=== PATIENT | male | born 1955 | race Caucasian/White ===

== ENCOUNTER 2023-12-02 11:52 | Emergency (ER) | payer MEDICARE, SELFPAY ==
[2023-12-02 12:02] VITALS: BP 144/77
--- NOTE | 2023-12-02 12:37 | ED.GENMED ---
History of Present Illness
General
Chief Complaint: Heart Rate Problem
Source: patient
Exam Limitations: none
Time Seen by Provider: 12/02/23 12:11
Travel History
Have you had any contact with someone who has COVID-19?: No
Do you have any symptoms of coronavirus? Fever > 100 degrees, chills, cough, shortness of breath, sore throat, loss of taste or smell, muscle aches, or headache?: No
History of Present Illness
History of Present Illness:
68-year-old male with history of coronary artery disease, A-fib on Eliquis presents complaining of fatigue and palpitations worsening over the past week and a half. He has a history of three-vessel disease requiring stents in the past. He is
followed by cardiology. He denies current chest pain. He denies nausea or vomiting. No leg swelling or calf pain. He notes significant increase in frequency and persistence of palpitations. No shortness of breath or lightheadedness. No other
complaints at this time
Past History
Past History
ED Past Medical History: Arrthythmia (Atrial fib), CAD, GERD, HTN, Hypercholesterolemia, [place] and Other (Diverticulosis)
ED Past Surgical History: Cardiac (stent X 3, STEMI) and Urological (Vasectomy)
Social History
Tobacco: Former smoker
Alcohol: None
Drug: None
Personal:
Living: with family
Employment: Employed
Family History
Family History: CAD
Phy Exam
Physical Exam
Physical Exam:
General: Well-appearing male no acute respiratory distress
HEENT: Normocephalic atraumatic
Heart: Regular rate and rhythm no audible murmurs lungs: Clear no wheeze or rales
Abdomen soft nontender nondistended no guarding or rebound
Extremities: No cyanosis
Skin: Warm no rash
Course
Orders/Labs/Results
Orders:
Orders
12/02/23 11:53
ECG [Electrocardiogram (*1)] Urgent
Reason for Study: Palpitations
EKG- Treatment ONCE
12/02/23 13:29
Complete Blood Count/With Diff Urgent
Comprehensive Metabolic Panel Urgent
TSH Reflex To Free T4 Urgent
Troponin I Urgent
Abnormal Lab Results
12/02/23
13:29
RDW 14.8 H %
(11.5-14.5)
Lymphocytes % 18.6 L %
(20.5-51.1)
Chloride 108 H mmol/L
(98-107)
BUN 22 H mg/dl
(9-20)
Glucose 101 H mg/dl
(70-99)
12/02/23 13:29
12/02/23 13:29
Vital Signs
Initial and Last Documented VS:
Initial Vital Signs
Temp Pulse Resp BP Pulse Ox
98.4 F 57 18 144/77 98
12/02/23 12:02 12/02/23 12:02 12/02/23 12:02 12/02/23 12:02 12/02/23 12:02
Last Documented Vital Signs
Temp Pulse Resp BP Pulse Ox
98.4 F 57 21 104/72 95
12/02/23 12:02 12/02/23 15:04 12/02/23 15:04 12/02/23 15:04 12/02/23 15:20
MDM/Problems Addressed
Differential Diagnosis Includes:
Palpitations. Reviewed prior records. Patient has been on metoprolol 50 mg for quite some time however his blood pressure was dropping after he lost some weight. He cut his metoprolol in half about a month ago. He started with palpitations about
10 days ago. Since the palpitations increased to cut back on to his original metoprolol dose as of this morning. He took an additional 100 mg last evening secondary to the increased palpitations. Currently he is in sinus rhythm on EKG with PVCs.
Given the fatigue and history of coronary artery disease will do workup including TSH and troponin. Keep on monitor.
*Critical Care Note
Total Time (30-74mins, 75-104mins- exclusive of procedures): Not Applicable
Update Note
Update Note:
Patient remained stable here. PVCs noted on monitor. Troponin undetectable. TSH normal. Labs reviewed without other significant findings. Discussed findings with cardiology, Dr. Cordero. Patient will continue 50 mg of metoprolol in the
morning and follow-up with cardiology. They have an appointment for him next Tuesday at 8 AM.
ED Attending Note
-
Portions of this chart may have been created with voice recognition software.� Occasional wrong word or��sound alike� substitutions may have occurred due to the inherent limitations of voice recognition software.
Discharge Plan
Departure
Patient Disposition: Home (Routine Discharge)
Date of Disposition: 12/02/23
Time of Disposition: 15:34
Patient with high blood pressure during this ER visit?: No
Discharge Problem:
Palpitations
Instructions: Palpitations (DC)
Prescriptions:
No Action
tadalafil [Cialis] 5 MG tablet
5 mg PO HS
metoprolol succinate 50 MG tablet extended release 24 hr
50 mg PO DAILY
losartan 25 MG tablet
25 mg PO DAILY
rosuvastatin 10 MG tablet
10 mg PO HS
multivitamin with folic acid [Tab-A-Dee Dee] 1 TABLET tablet
1 tab PO BID
Eliquis 5 MG tablet
5 mg PO BID Qty: 60 0RF
icosapent ethyl [Vascepa] 1 gram Capsule
2 g PO BID
Referrals:
Steve Leonard MD [Family Provider] -
Activity Restrictions/Additional Instructions:
Please continue to take 50 mg of metoprolol daily. Please follow-up with the cardiology team Tuesday morning at 8 AM. Return if needed otherwise
Interventions
Interventions:
*Risk Screen - Suicide Last Done: 12/02/23 12:02
*General Assessment Last Done: 12/02/23 12:02
*Neglect/Abuse Screening Last Done: 12/02/23 12:02
*ED COVID-19 Vaccine History Last Done: 12/02/23 12:02
ED- Cardiac Assessment Last Done: 12/02/23 15:17
ED- Pulmonary Assessment Last Done: 12/02/23 15:20
Discharge Date and Time
Print Language: AMERICAN
[2023-12-02 13:30] VITALS: BMI 29.1
[2023-12-02 13:39] LABS: % Basophils 0.3 % (0-2); % Eosinophils 3.2 % (0-6); % Immature Granulocytes 0.3 % (0-0.5); % Lymphocytes 18.6 % (20.5-51.1); % Monocytes 6.6 % (1.7-9.3); Absolute Eosinophils 0.2 10^3/uL (0-0.7); Absolute Lymphocytes 1.3 10^3/uL (1.2-3.4); Absolute Monocytes 0.5 10^3/uL (0.1-0.6); Absolute Neutrophils 4.8 10^3/uL (1.4-6.5); Hematocrit 40.7 % (39.0-52.0); Mean Corp Hgb Conc. 34.4 g/dL (33.0-37.0); Mean Corpuscular Hgb 29.2 pg (27.0-31.0); Mean Corpuscular Volume 84.8 fL (80.0-94.0); Mean Platelet Volume 10.2 fL (7.4-10.4); Nucleated Red Blood Cells % 0 % (-); Platelet Count 265 10^3/uL (130-400); Red Cell Dist. Width 14.8 % (11.5-14.5); White Blood Cell Count 6.8 10^3/uL (4.8-10.8)
[2023-12-02 13:53] LABS: ALT (SGPT) 25 U/L (0-50); AST (SGOT) 24 U/L (17-59); Albumin 4.1 g/dl (3.5-5.0); Alkaline Phosphatase 93 U/L (38-126); Blood Urea Nitrogen 22 mg/dl (9-20); Calcium 9.4 mg/dl (8.4-10.2); Carbon Dioxide 22 mmol/L (22-30); Chloride 108 mmol/L (98-107); Estimated Creatinine Clearance 80 ml/min; Glucose 101 mg/dl (70-99); Potassium 4.3 mmol/L (3.5-5.1); Sodium 137 mmol/L (135-145); Total Bilirubin 0.6 mg/dl (0.2-1.3); Total Protein 6.6 g/dl (6.3-8.2); eGFR > 60.00
[2023-12-02 14:08] LABS: Troponin I < 0.012 ng/ml
[2023-12-02 14:23] LABS: TSH Reflex To Free T4 2.01 uIU/ml (0.47-4.68)
[2023-12-02 15:04] VITALS: BP 104/72
[2023-12-02 16:11] VITALS: BP 104/72
== END 2023-12-02 16:18 | disposition home or self-care (01) ==
LOC: EMR 11:52
PROVIDERS: Physician Assistant; EMERGENCY PHYSICIAN Emergency Medicine; FAMILY PHYSICIAN Family Medicine
DX: R00.2 Palpitations (principal); R53.83 Other fatigue; I25.10 Atherosclerotic heart disease of native coronary artery without angina pectoris; I48.91 Unspecified atrial fibrillation; I10 Essential (primary) hypertension; E78.00 Pure hypercholesterolemia, unspecified; K21.9 Gastro-esophageal reflux disease without esophagitis; K57.90 Diverticulosis of intestine, part unspecified, without perforation or abscess without bleeding; I25.2 Old myocardial infarction; Z95.5 Presence of coronary angioplasty implant and graft; Z87.891 Personal history of nicotine dependence; Z79.01 Long term (current) use of anticoagulants; Z79.899 Other long term (current) drug therapy
CPT/HCPCS: 99283; 80053; 84443; 84484; 85025; 93005

== ENCOUNTER → 2024-01-05 14:14 | Outpatient (REF) | payer MEDICARE, SELFPAY | LOC: RCS 14:14 | PROVIDERS: ATTENDING PHYSICIAN Internal Medicine Cardiovascular Disease; FAMILY PHYSICIAN Family Medicine | DX: I25.10 Atherosclerotic heart disease of native coronary artery without angina pectoris (principal); I25.5 Ischemic cardiomyopathy; I25.2 Old myocardial infarction; Z98.890 Other specified postprocedural states | CPT/HCPCS: 93017; 93350 ==

== ENCOUNTER → 2024-02-10 18:17 | Outpatient (REF) | payer MEDICARE, SELFPAY | LOC: MRI 3T 18:17 | PROVIDERS: ATTENDING PHYSICIAN Otolaryngology; FAMILY PHYSICIAN Family Medicine | DX: H90.42 Sensorineural hearing loss, unilateral, left ear, with unrestricted hearing on the contralateral side (principal); H93.12 Tinnitus, left ear | CPT/HCPCS: 70553; A9575 ==

== ENCOUNTER → 2024-02-23 08:01 | Outpatient (REF) | payer MEDICARE, SELFPAY | LOC: RAD 08:01 | PROVIDERS: ATTENDING PHYSICIAN Specialist; FAMILY PHYSICIAN Family Medicine | DX: R31.0 Gross hematuria (principal) | CPT/HCPCS: 74178; Q9967 ==

== ENCOUNTER 2024-03-14 00:31 | Emergency (ER) | payer MEDICARE, SELFPAY ==
[2024-03-14 00:33] VITALS: BP 146/86
--- NOTE | 2024-03-14 00:40 | ED.GENMED ---
History of Present Illness
General
Chief Complaint: Cardiac Symptoms
Source: patient
Exam Limitations: none
Time Seen by Provider: 03/14/24 00:39
Nursing documentation reviewed up to this point in time: agreed with
History of Present Illness
History of Present Illness:
Pleasant 68-year-old male who presents with chest pain upon exertion. He was in [facility] with his grandkids and carrying firewood up a hill. He states that he had twinges of chest pain in his chest at that time. He reports that it has
been intermittent since. Patient states that he had an MD in 2012. He states that that pain was sudden and persistent. This pain was much different and much less intense. Patient has followed with Dr. Emanuel Olson, cardiology. He had a stress
test which she states was normal about a month and a half ago. He has had a normal office visit about a week ago. He states that since his heart attack he has lost about 50 pounds and has been more active. Denies tobacco or drug use. Does not
drink alcohol in excess. Patient is currently chest pain-free.
Vital signs are stable. Patient not hypoxic
Nursing note reviewed. I agree with nursing documentation up to this point in time.
Home Meds and allergies reviewed.
NUMBER AND COMPLEXITY OF PROBLEMS ADDRESSED AT THE ENCOUNTER
� Chronic conditions affecting care: ACS
� Acute Exacerbation and/or Progression of Chronic Illness: Hypertension
� Differential Diagnosis includes: ACS, musculoskeletal injury, MD
AMOUNT AND/OR COMPLEXITY OF DATA TO BE REVIEWED AND ANALYZED
I performed an independent evaluation of the following and my interpretation is:
EKG: EKG shows sinus bradycardia rate of 59 with normal intervals, normal axis. Interventricular conduction delay noted no evidence of acute ischemia present. When compared with previous EKG dated December 02, 2023, similar
morphology noted. There are some T wave inversions noted on current EKG.
CT:
X-rays:
Ultrasound:
Laboratory Studies:
Other:
Review of other/old records: Normal stress echocardiogram on 01/05/2024 with normal hemodynamic response to exercise. Overall low risk stress test
Clinical information was obtained by an independent historian:
Prescriptions/Medications Considered but not given:
Further testing considered but not performed:
RISK OF COMPLICATIONS AND/OR MORBIDITY OR MORTALITY OF PATIENT MANAGEMENT
Social determinants of health affecting care: Good Social Support present at the bedside
Discussion with other providers:
Escalation of care including admission/observation vs risk of discharge considered:
CRITICAL CARE NOTE:
Total Time (exclusive of procedures):
Update:
Past History
Past History
ED Past Medical History: Arrthythmia (Atrial fib), CAD, GERD, HTN, Hypercholesterolemia, [place] and Other (Diverticulosis)
ED Past Surgical History: Cardiac (stent X 3, STEMI) and Urological (Vasectomy)
Social History
Tobacco: Former smoker
Alcohol: None
Drug: None
Personal:
Living: with family
Employment: Employed
Family History
Family History: CAD
Review of Systems
Review of Systems
Allergies reviewed?: Yes
Other source history: family
All Other Systems: ROS reviewed and negative except as documented in HPI and ROS
Constitutional: Reports no symptoms
EENT: Reports no symptoms
Respiratory: Reports no symptoms
Cardiac: Reports chest pain
ABD/GI: Reports no symptoms
: Reports no symptoms
Musculoskeletal: Reports no symptoms
Skin: Reports no symptoms
Neurological: Reports no symptoms
Endocrine: Reports no symptoms
Hematologic/Lymphatic: Reports no symptoms
Psychiatric: Reports no symptoms
Phy Exam
General Physical Exam
General Presentation: well appearing and no apparent distress
General Skin: warm and dry
General Habitus: normal
General Mental: alert
General Hydration: appears well hydrated
ENT Exam
ENT Exam: EOMI, pharynx normal, neck supple and normocephalic
Eye Exam
Eye Exam: PERRL, cornea clear and conjunctiva normal
Cardiovascular Exam
Cardiovascular Exam: regular rate/rhythm, no edema, no murmur and normal peripheral pulses
Pulmonary Exam
Pulmonary Exam: lungs clear, no respiratory distress, no rales, no crackles, no rhonchi, no stridor, no wheezing and no cough
Gastrointestinal Exam
Gastrointestinal Exam: normal bowel sounds, non tender, soft, no organomegaly, no pulsatile mass and non distended
Neurological Exam
Neurological Exam: alert, oriented x3, no motor deficits and speech normal
Musculoskeletal Exam
Musculoskeletal Exam: full ROM and no edema
Skin Exam
Skin Exam: normal color, warm/dry, no rash and no petechia
Psychiatric Exam
Psychiatric Exam: normal mood/affect
Course
Orders/Labs/Results
Orders:
Orders
03/14/24 00:36
Electrocardiogram (*1) Urgent
Reason for Study: Chest Pain
EKG- Treatment ONCE
03/14/24 00:44
CR Chest - 2 Views Urgent
Comment:
Reason For Exam: cp
03/14/24 00:50
Electrocardiogram (*1) Urgent
Reason for Study: Chest Pain
EKG- Treatment ONCE
EKG- Treatment ONCE
03/14/24 00:54
CMP [Comprehensive Metabolic Panel] Urgent
Complete Blood Count/With Diff Urgent
Prothrombin Time Urgent
Troponin I Urgent
03/14/24 04:00
Electrocardiogram (*1) Urgent
Reason for Study: Chest Pain
03/14/24 04:03
Troponin I Routine
Abnormal Lab Results
03/14/24
00:54
Absolute Neuts (auto) 7.3 H 10^3/uL
(1.4-6.5)
Absolute Monos (auto) 0.8 H 10^3/uL
(0.1-0.6)
Lymphocytes % 19.4 L %
(20.5-51.1)
PT 15.2 H Sec
(11.4-14.6)
BUN 27 H mg/dl
(9-20)
Glucose 102 H mg/dl
(70-99)
03/14/24 00:54
03/14/24 00:54
Vital Signs
Initial and Last Documented VS:
Initial Vital Signs
Temp Pulse Resp BP Pulse Ox
97.8 F 54 22 146/86 97
03/14/24 00:33 03/14/24 00:33 03/14/24 00:33 03/14/24 00:33 03/14/24 00:33
Last Documented Vital Signs
Temp Pulse Resp BP Pulse Ox
97.8 F 48 19 116/81 98
03/14/24 00:33 03/14/24 04:15 03/14/24 04:15 03/14/24 04:12 03/14/24 02:00
*Critical Care Note
Total Time (30-74mins, 75-104mins- exclusive of procedures): Not Applicable
Update Note
Update Note:
03/14/2024 0104 AM repeat EKG shows sinus bradycardia rate of 54
ED Attending Note
-
Portions of this chart may have been created with voice recognition software.� Occasional wrong word or��sound alike� substitutions may have occurred due to the inherent limitations of voice recognition software.
Discharge Plan
Departure
Patient Disposition: Home (Routine Discharge)
Date of Disposition: 03/14/24
Time of Disposition: 04:49
Patient with high blood pressure during this ER visit?: No
Condition: Good
Discharge Problem:
Chest pain
Instructions: Chest Pain (DC)
Prescriptions:
No Action
tadalafil [Cialis] 5 MG tablet
5 mg PO HS
metoprolol succinate 50 MG tablet extended release 24 hr
50 mg PO DAILY
losartan 25 MG tablet
25 mg PO DAILY
rosuvastatin 10 MG tablet
10 mg PO HS
multivitamin with folic acid [Tab-A-Dee Dee] 1 TABLET tablet
1 tab PO BID
Eliquis 5 MG tablet
5 mg PO BID Qty: 60 0RF
icosapent ethyl [Vascepa] 1 gram Capsule
2 g PO BID
Referrals:
Martinez Olson MD [Active] - Call in 1-3 days for appt
UNKNOWN - PT DOES,NOT KNOW [Unknown Provider] -
Activity Restrictions/Additional Instructions:
It was a pleasure meeting you and taking part in your care. We hope for your continued healing and wellness.
Please read discharge instructions in their entirety. However, they are for general education and may not describe your exact diagnosis at discharge. Information on your ER visit and medical conditions were discussed with you along with appropriate
follow up information...
If indicated, please take your medications as instructed and indicated on discharge paperwork.
Please schedule a follow up appointment as directed. Call to schedule an appointment
Please return to the emergency department with ANY change in, persisting, or worsening of symptoms. If any of your symptoms do not improve, or persist, or become more severe within 6-12 hours, please return to the emergency department for further
care.
Please return to the emergency department if you develop a headache, neck pain/stiffness, fever greater than 100.4F, chest pain, shortness of breath, persistent nausea, vomiting, slurred speech, difficulty walking, numbness/tingling, weakness, signs
of infection or any other symptoms that are worrisome to you.
If you have any questions or concerns please do not hesitate to call the Hospital at or E-mail me directly at [email or web address]
Interventions
Interventions:
*Risk Screen - Suicide Last Done: 03/14/24 00:33
*General Assessment Last Done: 03/14/24 00:45
*Neglect/Abuse Screening Last Done: 03/14/24 00:33
*ED COVID-19 Vaccine History Last Done: 03/14/24 00:45
*Nursing Disposition Last Done: 03/14/24 04:58
ED- Cardiac Assessment Last Done: 03/14/24 00:45
ED- Pulmonary Assessment Last Done: 03/14/24 00:45
Discharge Date and Time
Discharge Date/Time: 03/14/24 05:02
Print Language: GUATEMALAN
[2024-03-14 00:45] VITALS: BMI 27.6
[2024-03-14 00:58] VITALS: BP 123/85
[2024-03-14 01:00] VITALS: BP 128/82
[2024-03-14 01:00] LABS: % Basophils 0.4 % (0-2); % Eosinophils 1.1 % (0-6); % Immature Granulocytes 0.3 % (0-0.5); % Lymphocytes 19.4 % (20.5-51.1); % Monocytes 7.7 % (1.7-9.3); % Neutrophils 71.1 % (42.2-75.2); Absolute Eosinophils 0.1 10^3/uL (0-0.7); Absolute Monocytes 0.8 10^3/uL (0.1-0.6); Absolute Neutrophils 7.3 10^3/uL (1.4-6.5); Hematocrit 44.4 % (39.0-52.0); Hemoglobin 15.6 g/dL (13.0-18.0); Mean Corp Hgb Conc. 35.1 g/dL (33.0-37.0); Mean Corpuscular Hgb 29.1 pg (27.0-31.0); Mean Corpuscular Volume 82.8 fL (80.0-94.0); Mean Platelet Volume 10.2 fL (7.4-10.4); Nucleated Red Blood Cells % 0 % (-); Platelet Count 268 10^3/uL (130-400); Red Blood Cell Count 5.36 10^6/uL (4.70-6.10); Red Cell Dist. Width 13.4 % (11.5-14.5); White Blood Cell Count 10.2 10^3/uL (4.8-10.8)
[2024-03-14 02:00] VITALS: BP 118/83
[2024-03-14 02:40] LABS: INR 1.22; PT 15.2 Sec (11.4-14.6)
[2024-03-14 02:51] LABS: Blood Urea Nitrogen 27 mg/dl (9-20); Glucose 102 mg/dl (70-99)
[2024-03-14 02:52] LABS: ALT (SGPT) 26 U/L (0-50); AST (SGOT) 27 U/L (17-59); Albumin 4.8 g/dl (3.5-5.0); Alkaline Phosphatase 104 U/L (38-126); Carbon Dioxide 23 mmol/L (22-30); Chloride 106 mmol/L (98-107); Estimated Creatinine Clearance 75 ml/min; Sodium 139 mmol/L (135-145); Total Bilirubin 0.6 mg/dl (0.2-1.3); Total Protein 7.3 g/dl (6.3-8.2); Troponin I 0.017 ng/ml; eGFR > 60.00
--- NOTE | 2024-03-14 02:57 | DOWNTIME ---
There was a [employer] Downtime on 03/14/2024 from 0100 to 03/14/2024 at 0252. Downtime documentation of patient's care, including medication administrations, has been reconciled in the electronic record per guidelines. Refer to the
patient's paper chart under the miscellaneous tab to see printed paper medication records and downtime forms.
[2024-03-14 03:00] VITALS: BP 116/80
[2024-03-14 04:12] VITALS: BP 116/81
[2024-03-14 04:47] LABS: Troponin I < 0.012 ng/ml
== END 2024-03-14 05:02 | disposition home or self-care (01) ==
LOC: EMR 00:31
PROVIDERS: EMERGENCY PHYSICIAN Student in an Organized Health Care Education/Training Program; FAMILY PHYSICIAN Family Medicine
DX: R07.89 Other chest pain (principal); K57.90 Diverticulosis of intestine, part unspecified, without perforation or abscess without bleeding; K21.9 Gastro-esophageal reflux disease without esophagitis; N40.1 Benign prostatic hyperplasia with lower urinary tract symptoms; R39.15 Urgency of urination; R35.0 Frequency of micturition; I10 Essential (primary) hypertension; I48.91 Unspecified atrial fibrillation; I25.10 Atherosclerotic heart disease of native coronary artery without angina pectoris; E78.00 Pure hypercholesterolemia, unspecified; I25.2 Old myocardial infarction; Z79.01 Long term (current) use of anticoagulants; Z95.5 Presence of coronary angioplasty implant and graft; Z87.891 Personal history of nicotine dependence
CPT/HCPCS: 99284; 71046; 80053; 84484; 85025; 85610; 93005

== ENCOUNTER → 2024-10-02 10:01 | Outpatient (REF) | payer MEDICARE, SELFPAY | LOC: RAD 10:01 | PROVIDERS: ATTENDING PHYSICIAN Specialist; FAMILY PHYSICIAN Family Medicine | DX: N20.0 Calculus of kidney (principal) | CPT/HCPCS: 74018 ==

== ENCOUNTER 2025-01-03 06:27 | Day surgery (SDC) | payer MEDICARE, SELFPAY ==
[2025-01-03] VITALS (7 sets, daily range): BP systolic 122–145; BP diastolic 76–92
[2025-01-03] MEDS: NORMOSOL-R/PLASMALYTE-A 1000 IV (08:44)
[2025-01-03] MEDS: Pyridium 200 MG PO (08:44)
[2025-01-03] MEDS: ROXICODONE 5 MG PO (12:30)
== END 2025-01-03 13:35 | disposition home or self-care (01) ==
LOC: SDS 06:27
PROVIDERS: ATTENDING PHYSICIAN Specialist; FAMILY PHYSICIAN Family Medicine
DX: N20.0 Calculus of kidney (principal)
CPT/HCPCS: 52356; 74018; 76000; C1894; C2617

== ENCOUNTER 2025-06-07 00:27 | Emergency (ER) | payer MEDICARE, SELFPAY ==
[2025-06-07 00:30] VITALS: BP 129/85
--- NOTE | 2025-06-07 00:45 | ED.GENMED ---
History of Present Illness
General
Chief Complaint: Flank Pain
Source: patient
Exam Limitations: none
Time Seen by Provider: 06/07/25 00:38
Nursing documentation reviewed up to this point in time: agreed with
History of Present Illness
History of Present Illness:
70-year-old male past medical history of A-fib currently on Eliquis, hypertension hyperlipidemia presenting to the emergency department today with concerns of left flank pain intermittent over the past week specifically worse last night which
prompted come to the ER. Does have a history of kidney stones. Denies specific urinary symptoms no nausea vomiting or fevers.
Past History
Past History
ED Past Medical History: Arrthythmia (Atrial fib), CAD, GERD, HTN, Hypercholesterolemia, [place] and Other (Diverticulosis)
ED Past Surgical History: Cardiac (stent X 3, STEMI) and Urological (Vasectomy)
Social History
Tobacco: Former smoker
Alcohol: None
Drug: None
Personal:
Living: with family
Employment: Employed
Family History
Family History: CAD
Review of Systems
Review of Systems
Allergies reviewed?: Yes
All Other Systems: ROS reviewed and negative except as documented in HPI and ROS
Phy Exam
Physical Exam
Physical Exam:
GENERAL: Alert , in no apparent distress
EYE: pupils equal and reactive
NECK: Supple, no significant adenopathy.
ENT: o/p clr, mmm.
CARDIAC: Regular rate and rhythm .
LUNGS: Clear breath sounds bilaterally, no acute respiratory distress, no wheezes/rales/rhonchi
ABDOMEN: Soft, without focal tenderness, no r/g, no cvat
NEUROLOGICAL: Alert and oriented, no focal neuro deficits
SKIN: Warm and dry, skin intact.
MUSCULOSKELETAL: No edema, well perfused.
PSYCH: Normal and appropriate interaction.
Course
Orders/Labs/Results
Orders:
Orders
06/07/25 00:44
CT Abd/pel Without Iv Or Oral Urgent
Comment:
Reason For Exam: left flan k pain left abdominal pain
0.9% Sodium Chloride 1000 ml [Nss] 1,000 ml IV BOLUS
06/07/25 00:57
Basic Metabolic Panel Urgent
Complete Blood Count/With Diff Urgent
06/07/25 01:21
Morphine Sulfate 2 mg IV NOW STA
06/07/25 02:04
Morphine Sulfate 2 mg IV NOW STA
06/07/25 02:44
Urinalysis Reflex To Culture Urgent
Date Specimen was Collected: 06/07/25
Time Specimen was Collected: 02:42
Urine Microscopic Reflex Cult Urgent
Urine Culture Urgent
BREANNA Source: U
Specimen Description:
Date Specimen was Collected: 06/07/25
Time Specimen was Collected: 02:42
Abnormal Lab Results
06/07/25 06/07/25
00:57 02:44
Absolute Monos (auto) 0.9 H 10^3/uL
(0.1-0.6)
Lymphocytes % 16.5 L %
(20.5-51.1)
Monocytes % 10.3 H %
(1.7-9.3)
Carbon Dioxide 21 L mmol/L
(22-30)
BUN 29 H mg/dl
(9-20)
Creatinine 2.0 H mg/dL
(0.7-1.3)
Glucose 119 H mg/dl
(70-99)
Urine Ketones 1+ A
(Negative)
Ur Occult Blood Reflex 3+ A
(Negative)
Urine RBC 16-20 A /HPF
(0-2)
Urine WBC (Reflex) 11-15 A /HPF
(0-5)
Urine Bacteria (Reflex) Few A
(Negative)
Urine Albumin (Reflex) 2+ A
(Neg - Trace)
06/07/25 00:57
06/07/25 00:57
Vital Signs
Initial and Last Documented VS:
Initial Vital Signs
Temp Pulse Resp BP Pulse Ox
98.0 F 84 24 129/85 98
06/07/25 00:30 06/07/25 00:30 06/07/25 00:30 06/07/25 00:30 06/07/25 00:30
Last Documented Vital Signs
Temp Pulse Resp BP Pulse Ox
98.0 F 67 18 128/84 98
06/07/25 00:30 06/07/25 04:48 06/07/25 03:00 06/07/25 04:48 06/07/25 00:46
MDM/Problems Addressed
MDM/Problems Addressed:
70-year-old male presenting to the emergency department today with concerns of left-sided flank pain worsening last night has been intermittent over the past week or so. No urinary symptoms vital signs are normal on arrival. Afebrile no
reproducible pain to palpation. Here CT scan with a distal 6 mm stone elevated creatinine level was discussed with urology recommending close outpatient follow-up. Return precautions given.
*Pulse Oximetry
SaO2: 98
Oxygen Mode of Delivery: Room air
Patient hypoxic: no (98)
*Critical Care Note
Total Time (30-74mins, 75-104mins- exclusive of procedures): Not Applicable
ED Attending Note
-
Portions of this chart may have been created with voice recognition software.� Occasional wrong word or��sound alike� substitutions may have occurred due to the inherent limitations of voice recognition software.
Discharge Plan
Departure
Patient Disposition: Home (Routine Discharge)
Date of Disposition: 06/07/25
Time of Disposition: 04:29
Patient with high blood pressure during this ER visit?: No
Condition: Good
Covid-19: Not Applicable
Discharge Problem:
Calculus, ureteral
Instructions: Renal Colic (DC)
Prescriptions:
New
tamsulosin 0.4 mg capsule
0.4 mg PO HS Qty: 7 0RF
oxycodone-acetaminophen [Endocet] 5-325 mg tablet
1 tab PO TID PRN (Reason: Pain) Qty: 7 0RF
No Action
tadalafil [Cialis] 5 MG tablet
5 mg PO HS
metoprolol succinate 50 MG tablet extended release 24 hr
50 mg PO DAILY
Eliquis 5 MG tablet
5 mg PO BID Qty: 60 0RF
iodine
4 - 5 drp PO DAILY
Referrals:
Steve Leonard MD [Family Provider, Family Practice]
Yazan Castaneda MD [Active, Urology] - Follow up in 5-7 days
Activity Restrictions/Additional Instructions:
You came to the emergency department today with concerns of flank pain. You are found to have a kidney stone. Please follow closely with urology and take the prescribed medications to help with symptoms. Return for any worsening, new or
concerning symptoms.
Interventions
Interventions:
*Risk Screen - Suicide Last Done: 06/07/25 00:30
*General Assessment Last Done: 06/07/25 00:47
*Neglect/Abuse Screening Last Done: 06/07/25 00:30
*ED- Fall Risk Assessment Last Done: 06/07/25 00:30
*ED COVID-19 Vaccine History Last Done: 06/07/25 00:30
*ED Influenza Vaccine History Last Done: 06/07/25 00:30
*Nursing Disposition Last Done: 06/07/25 04:56
FR-Fodnti-Wmwahmhjgo Assessment Last Done: 06/07/25 00:45
ED-Male Genitourinary Assessment Last Done: 06/07/25 00:45
Discharge Date and Time
Discharge Date/Time: 06/07/25 04:56
Print Language: PRYDEINIG
[2025-06-07 00:46] VITALS: BP 143/88
[2025-06-07 00:47] VITALS: BMI 27.3
[2025-06-07] MEDS: NSS 1000 IV (00:59)
[2025-06-07 01:24] LABS: Hematocrit 45.4 % (39.0-52.0); Hemoglobin 15.5 g/dL (13.0-18.0); Mean Corp Hgb Conc. 34.1 g/dL (33.0-37.0); Mean Corpuscular Volume 85.7 fL (80.0-94.0); Nucleated Red Blood Cells % 0 % (-); Platelet Count 258 10^3/uL (130-400); Red Cell Dist. Width 13.8 % (11.5-14.5)
[2025-06-07] MEDS: MORPHINE SULFATE 2 MG IV ×2 (01:25→02:09)
[2025-06-07 01:38] LABS: Blood Urea Nitrogen 29 mg/dl (9-20); Calcium 9.3 mg/dl (8.4-10.2); Carbon Dioxide 21 mmol/L (22-30); Chloride 105 mmol/L (98-107); Estimated Creatinine Clearance 39 ml/min; Glucose 119 mg/dl (70-99); Potassium 3.7 mmol/L (3.5-5.1); Sodium 139 mmol/L (135-145); eGFR 35.24
[2025-06-07 02:01] VITALS: BP 123/78
[2025-06-07 03:00] VITALS: BP 125/83
[2025-06-07 03:18] LABS: Urine Character Clear (Clear)
[2025-06-07 03:46] LABS: Urine Squamous Cell 0-2 /LPF (Few)
[2025-06-07 03:48] LABS: Urine Red Blood Cell 16-20 /HPF (0-2)
[2025-06-07 04:00] VITALS: BP 126/89
[2025-06-07 04:48] VITALS: BP 128/84
== END 2025-06-07 04:56 | disposition home or self-care (01) ==
LOC: EMR 00:27
PROVIDERS: Physician Assistant; EMERGENCY PHYSICIAN Student in an Organized Health Care Education/Training Program; FAMILY PHYSICIAN Family Medicine
DX: N13.2 Hydronephrosis with renal and ureteral calculous obstruction (principal); I25.10 Atherosclerotic heart disease of native coronary artery without angina pectoris; I48.91 Unspecified atrial fibrillation; I10 Essential (primary) hypertension; E78.00 Pure hypercholesterolemia, unspecified; I25.2 Old myocardial infarction; K21.9 Gastro-esophageal reflux disease without esophagitis; Z79.01 Long term (current) use of anticoagulants; Z87.442 Personal history of urinary calculi; Z95.5 Presence of coronary angioplasty implant and graft; Z87.891 Personal history of nicotine dependence; Z82.49 Family history of ischemic heart disease and other diseases of the circulatory system
CPT/HCPCS: 99284; 96374; 96376; 96361; 74176; 80048; 81003; 81015; 85025; 87086

== ENCOUNTER → 2025-07-22 13:41 | Outpatient (REF) | payer MEDICARE, SELFPAY | LOC: HWRAD 13:41 | PROVIDERS: ATTENDING PHYSICIAN Specialist; FAMILY PHYSICIAN Family Medicine | DX: N20.0 Calculus of kidney (principal) | CPT/HCPCS: 74176 ==